=== PATIENT | male | born 1945 | race Caucasian/White ===

== ENCOUNTER 2018-09-10 18:27 | Inpatient (IN) | payer MEDICARE, BC ==
[~2018-09-10] VITALS: Ht 182.9 cm; Wt 90.9 kg
--- NOTE | ~2018-09-10 | MORECARE ---
CASE MANAGEMENT DISCHARGE SUMMARY PATIENT: FRANCI KOLB UNIT: [id number] ADM DATE: 09/10/18 AGE: 73 : 45 SEX: M ROOM/BED: D.2222 AUTHOR: ALEXANDRIA ALANIS PHYSICIAN: REFERRING PHYSICIAN: LEATHA SHELLEY MD DATE OF SERVICE: 09/14/18 Discharge Plan Patient Name: FRANCI KOLB Facility: [facility]:[place] : 1945 Planned Disposition: Home Anticipated Discharge Date: Discharge Date: Expected LOS: Initial Reviewer: [email or web address] Initial Review Date: 09/12/2018 Generated: 09/14/18 1:02 pm Comments DCP- Discharge Planning Updated by [email or web address]: Bridgett Rush on 09/14/18 10:[address] Received order for discharge. Walk test completed, he is 94% with exertion so he does not qualify for home oxygen. He does need a nebulizer and neb meds and would like to use [facility]. I called and spoke to Scott and faxed clinical for nebulizer and neb med. and patient both decline inpatient rehab or SNF. He does agree to home health, [facility] for [facility] signed. I called and spoke to Margie and clinical faxed. He will go home today with home health. CM will continue to follow and assist with discharge planning/needs. DCP- Discharge Planning Updated by [email or web address]: Bridgett Rush on 09/12/18 3:[address] Patient Name: FRANCI KOLB Admission Status: ER Accout number: [id number] Admission Date: 09-10-2018 : 1945 Admission Diagnosis: Attending: LEATHA SHELLEY Current LOS: 2 Anticipated DC Date: Planned Disposition: Home Primary Insurance: MEDICARE A & B Discharge Planning Comments: CM met with patient and his to discuss discharge planning. He lives with his . He is independent with all ADL's and IADL's. States he still goes to the gym and is very active. States he has been using a cane since he has become sick, normally does not use an aide for ambulation. States he has no other DME or need any DME. Declines need for rehab or home health services. No needs identified. CM will continue to follow and assist with discharge planning/needs. Laborer Steel Handling: Bridgett Rush DCPIA - Discharge Planning Initial Assessment Updated by [id number]: Bridgett Rush on 09/12/18 4:30 pm * Is the patient Alert and Oriented? Yes * How many steps to enter\exit or inside your home? 10/16 flight * PCP Dr. Kaleb Weber * [facility]acy [facility] * Preadmission Environment Home with Family * ADLs Independent * Equipment Cane * List name and contact numbers for known caregivers / representatives who currently or will assist patient after discharge: Pam - - [phone] * Verbal permission to speak to the caregivers and representatives has been obtained from the patient. Yes * Community resources currently utilized None * Additional services required to return to the preadmission environment? No * Can the patient safely return to the preadmission environment? Yes * Has this patient been hospitalized within the prior 30 days at any hospital? No Coverage Notice Reviewer: [id number] - Bridgett Rush Notice Issued Date-Time: 09/14/2018 10:45 Notice Type: IM Discharge Notice Notice Delivered To: Patient Relationship to Patient: Self Cash Accountant Name: Delivery Method: HAND - Hand Delivered Niki Days: Prior Verbal Notification: Recipient Understood Notice: Yes Recipient Signature: Yes Med Rec Note Co-signed by Attending: Coverage Notice Comment: IMM explained, signed by his per request, copy given, original placed in MR Last DP export: 09/14/18 10:54 Patient Name: FRANCI KOLB Page [id number] at 1202 All edits/amendments must be made on the electronic document DICTATION DATE: 09/14/18 1201 TAILINGS DAM PUMPER: MARCELA 09/14/18 1201 RPT#: [id number] DC DATE: STATUS: ADM IN [facility] [address] [place] [address] END OF REPORT
--- NOTE | ~2018-09-10 | MORECARE ---
CASE MANAGEMENT DISCHARGE SUMMARY PATIENT: FRANCI KOLB UNIT: [id number] ADM DATE: 09/10/18 AGE: 73 : 45 SEX: M ROOM/BED: D.2222 AUTHOR: ANNABELLE,DOC PHYSICIAN: REFERRING PHYSICIAN: LEATHA SHELLEY MD DATE OF SERVICE: 09/14/18 Discharge Plan Patient Name: FRANCI KOLB Facility: [facility]:[place] : 1945 Planned Disposition: Home Anticipated Discharge Date: Discharge Date: 09/14/2018 Expected LOS: 0 Initial Reviewer: [email or web address] Initial Review Date: 09/12/2018 Generated: 09/14/18 4:58 pm Comments DCP- Discharge Planning Updated by [email or web address]: Bridgett Rush on 09/14/18 1:[address] Scott with [facility] states patient does not have a qualifying diagnosis for a nebulizer. He has checked with Dr. Weber's office, but he has not received a call back. The patient states he has not been diagnosed with COPD, asthma, bronchitis or emphysema in the past that he knows of. I spoke with Sandra Davenport and she is going to change it to inhalers. I informed the patient and that he was not to get the nebulizer medicine, but to get the inhaler. I spoke with Gricel at [facility] pharmacy and informed her that he will not need the neb med, but he will need the inhaler. CM will continue to follow and assist with discharge planning/needs. DCP- Discharge Planning Updated by [email or web address]: Bridgett Rush on 09/14/18 10:[address] Received order for discharge. Walk test completed, he is 94% with exertion so he does not qualify for home oxygen. He does need a nebulizer and neb meds and would like to use [facility]. I called and spoke to Scott and faxed clinical for nebulizer and neb med. and patient both decline inpatient rehab or SNF. He does agree to home health, [facility] for [facility] signed. I called and spoke to Margie and clinical faxed. He will go home today with home health. CM will continue to follow and assist with discharge planning/needs. DCP- Discharge Planning Updated by [email or web address]: Bridgett Rush on 09/12/18 3:[address] Patient Name: FRANCI KOLB Admission Status: ER Accout number: [id number] Admission Date: 09-10-2018 : 1945 Admission Diagnosis: Attending: LEATHA SHELLEY Current LOS: 2 Anticipated DC Date: Planned Disposition: Home Primary Insurance: MEDICARE A & B Discharge Planning Comments: CM met with patient and his to discuss discharge planning. He lives with his . He is independent with all ADL's and IADL's. States he still goes to the gym and is very active. States he has been using a cane since he has become sick, normally does not use an aide for ambulation. States he has no other DME or need any DME. Declines need for rehab or home health services. No needs identified. CM will continue to follow and assist with discharge planning/needs. Network Operations Lead: Bridgett Rush DCPIA - Discharge Planning Initial Assessment Updated by [email or web address]: Bridgett Rush on 09/12/18 4:30 pm * Is the patient Alert and Oriented? Yes * How many steps to enter\exit or inside your home? 10/16 flight * PCP Dr. Kaleb Weber * [facility] * Preadmission Environment Home with Family * ADLs Independent * Equipment Cane * List name and contact numbers for known caregivers / representatives who currently or will assist patient after discharge: Pam lyle - [phone] * Verbal permission to speak to the caregivers and representatives has been obtained from the patient. Yes * Community resources currently utilized None * Additional services required to return to the preadmission environment? No * Can the patient safely return to the preadmission environment? Yes * Has this patient been hospitalized within the prior 30 days at any hospital? No Coverage Notice Reviewer: [id number] - Bridgett Rush Notice Issued Date-Time: 09/14/2018 10:45 Notice Type: IM Discharge Notice Notice Delivered To: Patient Relationship to Patient: Self Interrelated Special Education Teacher Name: Delivery Method: HAND - Hand Delivered Niki Days: Prior Verbal Notification: Recipient Understood Notice: Yes Recipient Signature: Yes Med Rec Note Co-signed by Attending: Coverage Notice Comment: IMM explained, signed by his per request, copy given, original placed in MR Last DP export: 09/14/18 1:21 Patient Name: FRANCI KOLB Page 80504 at 1558 All edits/amendments must be made on the electronic document DICTATION DATE: 09/14/181556 CERTIFIED APPLIANCE SERVICE TECHNICIAN: MARCELA 09/14/181556 RPT#: [id number] DC DATE:09/14/18 STATUS: DIS IN [facility] [address] [place] [address] END OF REPORT
--- NOTE | ~2018-09-10 | MORECARE ---
CASE MANAGEMENT DISCHARGE SUMMARY PATIENT: FRANCI KOLB UNIT: [id number] ADM DATE: 09/10/18 AGE: 73 : 45 SEX: M ROOM/BED: D.2222 AUTHOR: ANNABELLE,DOC PHYSICIAN: REFERRING PHYSICIAN: LEATHA SHELLEY MD DATE OF SERVICE: 09/14/18 Discharge Plan Patient Name: FRANCI KOLB Facility: [facility]:[place] : 1945 Planned Disposition: Home Anticipated Discharge Date: Discharge Date: Expected LOS: Initial Reviewer: [id number] Initial Review Date: 09/12/2018 Generated: 09/14/18 12:54 pm Comments DCP- Discharge Planning Updated by [email or web address]: Bridgett Rush on 09/12/18 3:[address] Patient Name: FRANCI KOLB Admission Status: ER Accout number: [id number] Admission Date: 09-10-2018 : 1945 Admission Diagnosis: Attending: LEATHA SHELLEY Current LOS: 2 Anticipated DC Date: Planned Disposition: Home Primary Insurance: MEDICARE A & B Discharge Planning Comments: CM met with patient and his to discuss discharge planning. He lives with his . He is independent with all ADL's and IADL's. States he still goes to the gym and is very active. States he has been using a cane since he has become sick, normally does not use an aide for ambulation. States he has no other DME or need any DME. Declines need for rehab or home health services. No needs identified. CM will continue to follow and assist with discharge planning/needs. Insurance Follow Up Specialist: Bridgett Rush DCPIA - Discharge Planning Initial Assessment Updated by [email or web address]: Bridgett Rush on 09/12/18 4:30 pm * Is the patient Alert and Oriented? Yes * How many steps to enter\exit or inside your home? 10/16 flight * PCP Dr. Kaleb Weber * [facility] * Preadmission Environment Home with Family * ADLs Independent * Equipment Cane * List name and contact numbers for known caregivers / representatives who currently or will assist patient after discharge: Pam - - [phone] * Verbal permission to speak to the caregivers and representatives has been obtained from the patient. Yes * Community resources currently utilized None * Additional services required to return to the preadmission environment? No * Can the patient safely return to the preadmission environment? Yes * Has this patient been hospitalized within the prior 30 days at any hospital? No External Providers External Provider: [facility] Next Contact Date: Service Request Date: Service Type: Resolution: Reviewer: Comments: External Provider: [facility] Next Contact Date: Service Request Date: Service Type: Resolution: Reviewer: Comments: Coverage Notice Reviewer: [id number] Aarti Rush Notice Issued Date-Time: 09/14/2018 10:45 Notice Type: IM Discharge Notice Notice Delivered To: Patient Relationship to Patient: Self Orthopaedic Physician Assistant Name: Delivery Method: HAND - Hand Delivered Niki Days: Prior Verbal Notification: Recipient Understood Notice: Yes Recipient Signature: Yes Med Rec Note Co-signed by Attending: Coverage Notice Comment: IMM explained, signed by his per request, copy given, original placed in MR Last DP export: 09/12/18 3:32 Patient Name: FRANCI KOLB Page 97155 at 1154 All edits/amendments must be made on the electronic document DICTATION DATE: 09/14/18 1154 BAGGAGE CHECKER: MARCELA 09/14/18 1154 RPT#: [id number] DC DATE: STATUS: ADM IN [facility] [address] [place] [address] END OF REPORT
--- NOTE | ~2018-09-10 | MORECARE ---
CASE MANAGEMENT DISCHARGE SUMMARY PATIENT: FRANCI KOLB UNIT: [id number] ADM DATE: 09/10/18 AGE: 73 : 45 SEX: M ROOM/BED: D.2222 AUTHOR: ANNABELLE,DOC PHYSICIAN: REFERRING PHYSICIAN: LEATHA SHELLEY MD DATE OF SERVICE: 09/12/18 Discharge Plan Patient Name: FRANCI KOLB Facility: [facility]:[place] : 1945 Planned Disposition: Home Anticipated Discharge Date: Discharge Date: Expected LOS: Initial Reviewer: [id number] Initial Review Date: 09/12/2018 Generated: 09/12/18 5:32 pm Comments DCP- Discharge Planning Updated by [id number]: Bridgett Rush on 09/12/18 3:[address] Patient Name: FRANCI KOLB Admission Status: ER Accout number: [id number] Admission Date: 09-10-2018 : 1945 Admission Diagnosis: Attending: LEATHA SHELLEY Current LOS: 2 Anticipated DC Date: Planned Disposition: Home Primary Insurance: MEDICARE A & B Discharge Planning Comments: CM met with patient and his to discuss discharge planning. He lives with his . He is independent with all ADL's and IADL's. States he still goes to the gym and is very active. States he has been using a cane since he has become sick, normally does not use an aide for ambulation. States he has no other DME or need any DME. Declines need for rehab or home health services. No needs identified. CM will continue to follow and assist with discharge planning/needs. Team Automobile Assembler: Bridgett Rush DCPIA - Discharge Planning Initial Assessment Updated by [email or web address]: Bridgett Rush on 09/12/18 4:30 pm * Is the patient Alert and Oriented? Yes * How many steps to enter\exit or inside your home? 10/16 flight * PCP Dr. Kaleb Weber * [facility] * Preadmission Environment Home with Family * ADLs Independent * Equipment Cane * List name and contact numbers for known caregivers / representatives who currently or will assist patient after discharge: Pam - - [phone] * Verbal permission to speak to the caregivers and representatives has been obtained from the patient. Yes * Community resources currently utilized None * Additional services required to return to the preadmission environment? No * Can the patient safely return to the preadmission environment? Yes * Has this patient been hospitalized within the prior 30 days at any hospital? No Patient Name: FRANCI KOLB Page [id number] at 1632 All edits/amendments must be made on the electronic document DICTATION DATE: 09/12/18 163 SUPERINTENDENT CONCRETE MIXING PLANT: MARCELA 09/12/18 1631 RPT#: [id number] DC DATE: STATUS: ADM IN [facility] [address] [place] [address] END OF REPORT
--- NOTE | ~2018-09-10 | EC ---
PATIENT:FRANCI KOLB DATE OF SERVICE: 09/10/18 SEX: M MEDICAL RECORD: [id number] DATE OF : [birth year] LOCATION:D.MS [id number] AGE OF PATIENT: 73 ADMISSION DATE: 09/10/18 REFERRING PHYSICIAN: INTERPRETING PHYSICIAN: ACOSTA ROSADO MD ECHOCARDIOGRAM REPORT ECHO CHARGES 4 ECHO COMPLETE Date: 09/12/18 CLINICAL DIAGNOSIS: UNCONTROLLED HTN ECHOCARDIOGRAPHIC MEASUREMENTS (adult normal given) AC root (d.<3.7cm) 4.6 cm LV Septum d (<1.2 cm> 1.6 cm Valve Excursion 1.4 cm LV Septum (systole) 1.8 cm Left Atria (s.<4.0cm> 3.8 cm LVPW d(<1.2cm) 1.3 cm RV (d.<2.3cm) 3.9 cm LVPW (sytole) 1.9 cm LV diastole(<5.6CM) 7.6 cm MV E-F(>70mm/sec) cm LV systole 6.1 cm LVOT Diameter 1.9 cm MV exc.(>10mm) cm Est.ejection fraction (50-75%) % DOPPLER: LVIT cm/sec A 53 cm/sec E 66 cm/sec LA cm/sec RVSP 25.2 mmHg LVOT 125 cm/sec AOP1/2T m/s Asc. Ao 197 cm/sec RVOT 93 cm/sec RA cm/sec PA 110 cm/sec AV Gradient Peak 15.5 mmHg AV Mean 8.5 mmHg AV Area 1.9 cm MV Gradient Peak 5.0 mmHg MV Mean 3.1 mmHg MV Area cm COMMENTS: Service Station Helper: Bernardo [facility] Senior Net Software Engineer: 1 Dr. Rosado TAPE# PACS Pericardial Effusion N DATE OF SERVICE: 09/12/2018 FINDINGS: 1. Left ventricular chamber size is dilated. Left ventricular systolic function is preserved. Overall ejection fraction estimated at 50%. 2. Left atrium is upper limits of normal at 4.0 cm. Right atrium and right ventricular chamber sizes are mildly dilated. 3. Valvular structures have normal structure and motion. 4. Doppler interrogation reveals mild mitral regurgitation, mild tricuspid regurgitation. No other valvular insufficiency or stenosis. Pulmonary systolic ECHOCARDIOGRAM REPORT [id number] FRANCI KOLB pressure estimated at 25 mmHg. 5. No evidence of pericardial effusion or left ventricular thrombus. TRANSINT:[id number] Voice Confirmation ID: [id number] DOCUMENT ID: [id number] ACOSTA ROSADO MD at 1718 CC: [id number] DICTATION DATE: 09/12/18 110 RECORDS MANAGEMENT ENGINEER: 09/12/18 1222 ADM IN [facility] [address] [place] [address]
--- NOTE | ~2018-09-10 | MORECARE ---
CASE MANAGEMENT DISCHARGE SUMMARY PATIENT: FRANCI KOLB UNIT: [id number] ADM DATE: 09/10/18 AGE: 73 : 45 SEX: M ROOM/BED: D.2222 AUTHOR: ANNABELLE,DOC PHYSICIAN: REFERRING PHYSICIAN: LEATHA SHELLEY MD DATE OF SERVICE: 09/14/18 Discharge Plan Patient Name: FRANCI KOLB Facility: [facility]:[place] : 1945 Planned Disposition: Home Anticipated Discharge Date: Discharge Date: Expected LOS: Initial Reviewer: [id number] Initial Review Date: 09/12/2018 Generated: 09/14/18 3:21 pm Comments DCP- Discharge Planning Updated by [email or web address]: Bridgett Rush on 09/14/18 1:[address] Scott with [facility] states patient does not have a qualifying diagnosis for a nebulizer. He has checked with Dr. Weber's office, but he has not received a call back. The patient states he has not been diagnosed with COPD, asthma, bronchitis or emphysema in the past that he knows of. I spoke with Sandra Davenport and she is going to change it to inhalers. I informed the patient and that he was not to get the nebulizer medicine, but to get the inhaler. I spoke with Gricel at [facility] pharmacy and informed her that he will not need the neb med, but he will need the inhaler. CM will continue to follow and assist with discharge planning/needs. DCP- Discharge Planning Updated by [email or web address]: Bridgett Rush on 09/14/18 10:[address] Received order for discharge. Walk test completed, he is 94% with exertion so he does not qualify for home oxygen. He does need a nebulizer and neb meds and would like to use [facility]. I called and spoke to Scott and faxed clinical for nebulizer and neb med. and patient both decline inpatient rehab or SNF. He does agree to home health, [facility] for [facility] signed. I called and spoke to Margie and clinical faxed. He will go home today with home health. CM will continue to follow and assist with discharge planning/needs. DCP- Discharge Planning Updated by [email or web address]: Bridgett Rush on 09/12/18 3:[address] Patient Name: FRANCI KOLB Admission Status: ER Accout number: [id number] Admission Date: 09-10-2018 : 1945 Admission Diagnosis: Attending: LEATHA SHELLEY Current LOS: 2 Anticipated DC Date: Planned Disposition: Home Primary Insurance: MEDICARE A & B Discharge Planning Comments: CM met with patient and his to discuss discharge planning. He lives with his . He is independent with all ADL's and IADL's. States he still goes to the gym and is very active. States he has been using a cane since he has become sick, normally does not use an aide for ambulation. States he has no other DME or need any DME. Declines need for rehab or home health services. No needs identified. CM will continue to follow and assist with discharge planning/needs. Lead Quality Technician: Bridgett Rush DCPIA - Discharge Planning Initial Assessment Updated by [email or web address]: Bridgett Rush on 09/12/18 4:30 pm * Is the patient Alert and Oriented? Yes * How many steps to enter\exit or inside your home? 10/16 flight * PCP Dr. Kaleb Weber * [facility] * Preadmission Environment Home with Family * ADLs Independent * Equipment Cane * List name and contact numbers for known caregivers / representatives who currently or will assist patient after discharge: Pam - - [phone] * Verbal permission to speak to the caregivers and representatives has been obtained from the patient. Yes * Community resources currently utilized None * Additional services required to return to the preadmission environment? No * Can the patient safely return to the preadmission environment? Yes * Has this patient been hospitalized within the prior 30 days at any hospital? No Coverage Notice Reviewer: [id number] - Bridgett Rush Notice Issued Date-Time: 09/14/2018 10:45 Notice Type: IM Discharge Notice Notice Delivered To: Patient Relationship to Patient: Self Jeep Mechanic Name: Delivery Method: HAND - Hand Delivered Niki Days: Prior Verbal Notification: Recipient Understood Notice: Yes Recipient Signature: Yes Med Rec Note Co-signed by Attending: Coverage Notice Comment: IMM explained, signed by his per request, copy given, original placed in MR Last DP export: 09/14/18 11:02 Patient Name: FRANCI KOLB Page 55101 at 1421 All edits/amendments must be made on the electronic document DICTATION DATE: 09/14/181420 ABRASIVE GRADER HELPER: MARCELA 09/14/181420 RPT#: [id number] DC DATE: STATUS: ADM IN [facility] [address] [place] [address] END OF REPORT
[2018-09-10] MEDS ORDERED: GLAUCOMA (18:42)
[2018-09-10 20:15] LABS: HEMATOCRIT 37.5 % (42.0-54.0); LYMPHOCYTES 6.1 % (15-50); MCH 30.6 pg (26.0-34.0); MCHC 34.7 g/dL (31.0-37.0); MCV 88.2 fL (80.0-100.0); MEAN PLATELET VOLUME 10.5 fL (7.4-10.4); NEUTROPHILS 88.4 % (40-80); PLATELET COUNT 205 10x3/uL (130-400); RBC 4.25 10x6/uL (4.20-6.10); RDW 13.9 % (11.5-14.5)
[2018-09-10 20:28] LABS: ALBUMIN 3.6 g/dL (3.4-5.0); ALKALINE PHOSPHATASE 79 U/L (46-116); ALT (SGPT) 24 U/L (10-68); BILIRUBIN - TOTAL 0.64 mg/dL (0.2-1.3); CALC OSMOLALITY 275 mosm/kg (275-300); CALCIUM 8.6 mg/dL (8.5-10.1); CARBON DIOXIDE 25.9 mmol/L (21.0-32.0); CHLORIDE - SERUM 99 mmol/L (98-107); CREATININE - SERUM 1.1 mg/dL (0.6-1.3); GLUCOSE 118 mg/dL (74-106); POTASSIUM - SERUM 3.4 mmol/L (3.5-5.1); PROTEIN - SERUM 7.2 g/dL (6.4-8.2); SODIUM 135 mmol/L (136-145); UREA NITROGEN 26 mg/dL (7-18); eGFR NON AFRICAN AMERICAN 70 mL/min (90-120)
[2018-09-10 20:30] VITALS: BP 177/110
[2018-09-10 20:49] LABS: CKMB 2.5 U/L (0.0-3.6); CREATINE KINASE 80 UL (21-232); PRO BNP 3202 pg/mL (0-125)
[2018-09-10 20:52] LABS: TROPONIN-I 0.102 ng/mL (0.000-0.060)
[2018-09-10 22:15] VITALS: BP 180/92
[2018-09-11] VITALS (7 sets, daily range): BP systolic 111–204; BP diastolic 66–120; Ht 182.9 cm; Wt 90.9 kg
[2018-09-11 10:47] LABS: BASOPHILS 0 % (0-2); EOSINOPHILS 0 % (0-7); HEMATOCRIT 34.4 % (42.0-54.0); HEMOGLOBIN 11.8 g/dL (13.5-17.5); IMMATURE GRANULOCYTES 0.2 % (0-5); LYMPHOCYTES 6.6 % (15-50); MCH 30.4 pg (26.0-34.0); MCHC 34.3 g/dL (31.0-37.0); MCV 88.7 fL (80.0-100.0); MEAN PLATELET VOLUME 10.5 fL (7.4-10.4); MONOCYTES 7.2 % (2-11); PLATELET COUNT 208 10x3/uL (130-400); RBC 3.88 10x6/uL (4.20-6.10)
[2018-09-11 11:04] LABS: ALBUMIN 3.3 g/dL (3.4-5.0); ANION GAP 13.6 mmol/L (8-16); BILIRUBIN - TOTAL 0.48 mg/dL (0.2-1.3); CALCIUM 8.5 mg/dL (8.5-10.1); CARBON DIOXIDE 25.7 mmol/L (21.0-32.0); POTASSIUM - SERUM 3.3 mmol/L (3.5-5.1); PROTEIN - SERUM 6.6 g/dL (6.4-8.2)
[2018-09-11 11:07] LABS: CREATININE - SERUM 1.4 mg/dL (0.6-1.3)
[2018-09-11 14:39] LABS: CHOL - HDL RATIO 2.9 ratio (2.3-4.9); LDL-HDL RATIO 1.7 ratio (1.5-3.5); THYROID STIMULATING HORMONE 1.62 uIU/mL (0.36-3.74)
[2018-09-11 16:36] LABS: CKMB 3.5 U/L (0.0-3.6); CREATINE KINASE 117 UL (21-232)
[2018-09-11 16:37] LABS: TROPONIN-I 0.068 ng/mL (0.000-0.060)
[2018-09-11 21:59] LABS: CKMB 3.7 U/L (0.0-3.6); CREATINE KINASE 172 UL (21-232)
[2018-09-11 22:04] LABS: TROPONIN-I 0.111 ng/mL (0.000-0.060)
[2018-09-12] VITALS (7 sets, daily range): BP systolic 127–208; BP diastolic 74–131
[2018-09-12 04:14] LABS: BASOPHILS 0.2 % (0-2); EOSINOPHILS 0.8 % (0-7); HEMATOCRIT 35.2 % (42.0-54.0); HEMOGLOBIN 11.9 g/dL (13.5-17.5); IMMATURE GRANULOCYTES 0.3 % (0-5); LYMPHOCYTES 8.8 % (15-50); MCH 30.5 pg (26.0-34.0); MCHC 33.8 g/dL (31.0-37.0); MCV 90.3 fL (80.0-100.0); MEAN PLATELET VOLUME 10.8 fL (7.4-10.4); NEUTROPHILS 79.9 % (40-80); PLATELET COUNT 219 10x3/uL (130-400); RDW 14.5 % (11.5-14.5)
[2018-09-12 04:19] LABS: WBC 15.8 10x3/uL (4.8-10.8)
[2018-09-12 04:52] LABS: ALBUMIN 3.5 g/dL (3.4-5.0); ALKALINE PHOSPHATASE 67 U/L (46-116); ALT (SGPT) 22 U/L (10-68); BILIRUBIN - TOTAL 0.41 mg/dL (0.2-1.3); CALC OSMOLALITY 284 mosm/kg (275-300); CALCIUM 8.4 mg/dL (8.5-10.1); CARBON DIOXIDE 25.4 mmol/L (21.0-32.0); CHLORIDE - SERUM 102 mmol/L (98-107); CHOL - HDL RATIO 2.9 ratio (2.3-4.9); CHOLESTEROL, TOTAL 157 mg/dL (0-200); CKMB 4.1 U/L (0.0-3.6); CREATINE KINASE 176 UL (21-232); CREATININE - SERUM 1.4 mg/dL (0.6-1.3); GLUCOSE 111 mg/dL (74-106); HDL CHOLESTEROL 55 mg/dL (32-96); LDL CHOLESTEROL 94 mg/dL (0-100); LDL-HDL RATIO 1.7 ratio (1.5-3.5); PROTEIN - SERUM 6.8 g/dL (6.4-8.2); SODIUM 138 mmol/L (136-145); TRIGLYCERIDE 42 mg/dL (30-200); UREA NITROGEN 35 mg/dL (7-18); eGFR NON AFRICAN AMERICAN 53 mL/min (90-120)
[2018-09-12 04:53] LABS: POTASSIUM - SERUM 3.7 mmol/L (3.5-5.1); TROPONIN-I 0.186 ng/mL (0.000-0.060)
[2018-09-13 01:06] VITALS: BP 185/106
[2018-09-13 05:01] LABS: BASOPHILS 0.4 % (0-2); EOSINOPHILS 2.3 % (0-7); HEMATOCRIT 33.1 % (42.0-54.0); HEMOGLOBIN 11.2 g/dL (13.5-17.5); IMMATURE GRANULOCYTES 0.2 % (0-5); LYMPHOCYTES 14.8 % (15-50); MCH 30.4 pg (26.0-34.0); MCHC 33.8 g/dL (31.0-37.0); MCV 89.7 fL (80.0-100.0); MEAN PLATELET VOLUME 10.4 fL (7.4-10.4); MONOCYTES 13.4 % (2-11); NEUTROPHILS 68.9 % (40-80); PLATELET COUNT 200 10x3/uL (130-400); RBC 3.69 10x6/uL (4.20-6.10); RDW 14.7 % (11.5-14.5)
[2018-09-13 05:26] LABS: ALBUMIN 3.1 g/dL (3.4-5.0); BILIRUBIN - TOTAL 0.92 mg/dL (0.2-1.3); CARBON DIOXIDE 25.5 mmol/L (21.0-32.0); CREATININE - SERUM 1.3 mg/dL (0.6-1.3); PROTEIN - SERUM 6.5 g/dL (6.4-8.2)
[2018-09-13 05:35] LABS: ANION GAP 9.5 mmol/L (8-16)
[2018-09-13 06:31] VITALS: BP 187/96
[2018-09-13 09:39] VITALS: BP 188/104
[2018-09-13 12:43] VITALS: BP 147/81
[2018-09-13 17:28] VITALS: BP 160/103
[2018-09-13 20:00] VITALS: BP 172/88
[2018-09-14] VITALS: BP 163/81
[2018-09-14 04:00] VITALS: BP 189/107
[2018-09-14 04:28] LABS: BASOPHILS 0.2 % (0-2); HEMATOCRIT 33.8 % (42.0-54.0); HEMOGLOBIN 11.5 g/dL (13.5-17.5); IMMATURE GRANULOCYTES 0.2 % (0-5); LYMPHOCYTES 14.3 % (15-50); MCH 30.5 pg (26.0-34.0); MCV 89.7 fL (80.0-100.0); MEAN PLATELET VOLUME 10.5 fL (7.4-10.4); MONOCYTES 13.2 % (2-11); NEUTROPHILS 68.1 % (40-80); PLATELET COUNT 193 10x3/uL (130-400); RBC 3.77 10x6/uL (4.20-6.10); RDW 14.4 % (11.5-14.5); WBC 8.4 10x3/uL (4.8-10.8)
[2018-09-14 04:46] LABS: ALBUMIN 3.2 g/dL (3.4-5.0); BILIRUBIN - TOTAL 1.1 mg/dL (0.2-1.3); CALCIUM 8.7 mg/dL (8.5-10.1); CARBON DIOXIDE 27.1 mmol/L (21.0-32.0); CREATININE - SERUM 1.3 mg/dL (0.6-1.3); POTASSIUM - SERUM 3.1 mmol/L (3.5-5.1); PROTEIN - SERUM 6.8 g/dL (6.4-8.2)
[2018-09-14 08:30] VITALS: BP 204/105
[2018-09-14] MEDS ORDERED: IPRAT-ALBUT 0.5-3 ML UPD (10:53)
[2018-09-14] MEDS ORDERED: CATAPRES0.1 MG PO (10:53)
[2018-09-14] MEDS ORDERED: TESSALON PERLE100 MG PO (10:53)
[2018-09-14] MEDS ORDERED: LEVAQUIN750 MG PO (10:54)
[2018-09-14] MEDS ORDERED: FLORAJEN3 CAPS460 MG PO (10:54)
[2018-09-14] MEDS ORDERED: MUCINEX600 MG PO (10:54)
[2018-09-14] MEDS ORDERED: VENTOLIN HFA18 GM INH (12:50)
[2018-09-14 12:53] VITALS: BP 166/95
== END 2018-09-14 15:43 | disposition home or self-care (01) | DRG 193 ==
LOC: D.ER 18:27 → D.EDHOLD 21:16 → D.MS 21:16
PROVIDERS: Family Medicine; Internal Medicine Interventional Cardiology
DX: J18.9 Pneumonia, unspecified organism (principal); J96.01 Acute respiratory failure with hypoxia; J90 Pleural effusion, not elsewhere classified; N17.9 Acute kidney failure, unspecified; R73.9 Hyperglycemia, unspecified; I10 Essential (primary) hypertension